=== PATIENT | female | born 1945 | race Caucasian/White ===

== ENCOUNTER → 2017-04-16 | Outpatient (CLI) | payer MEDICARE, OTHER ==
[~2017-04-16] MED LIST: GADOBENATE 529MG/1ML 15ML VIAL IVP ONE
--- NOTE | 2017-04-16 15:43 | RADIOLOGY IMAGING REPORT ---
FACILITY: PATIENT NAME: Ella Mauricio : 1945 MR: [id number] V: [id number] EXAM DATE: ORDERING PHYSICIAN: HANK ANSARI TECHNOLOGIST: Location: [facility] Patient: Ella Mauricio : 1945 Visit/Account:[id number] Date of Sevice: 04/16/2017 MRI of the lumbar spine with and without contrast Indication: Low back pain Comparison: MRI lumbar spine from 02/23/2013 Technique: Sagittal T2-weighted, sagittal STIR, sagittal T1-weighted, axial T2-weighted fat-saturated , and axial T1-weighted images of the lumbar spine were obtained. Sagittal T1-weighted fat saturated post contrast and axial T1-weighted post contrast images were obtained through the lumbar spine. A to taurus of 14 ml IV MultiHance contrast was administered. Findings: The conus terminates normally at level of L1-L2 There is a nonspecific small nonenhancing hypointensity measuring 5 mm within the mid L2 vertebral margi dy which appears unchanged and may represent an atypical hemangioma. There is no increased signal on the sagittal STIR images. There is no abnormal signal within the visualized spinal cord, The vertebral body heights are well maintained. Minimal disc desiccation seen throughout the lumbar spine levels. The sagittal images of T12-L1 show no significant central stenosis or foraminal narrowing. T12-L1: No significant central stenosis or neural foraminal narrowing. L1-L2: There is a tiny hypointense nonenhancing 5 mm structure along the anterior margin of the exiti ng right L1 nerve seen best in image 3 of the sagittal series which could represent a tiny disc fragm ent/extrusion. This was not seen on prior study. L2-L3: . She described ovoid hypointense structure within the left neural foramen is not visualized on this study. There is a mild diffuse disc bulge at this level with minimal central stenosis and min imal foraminal narrowing bilaterally as well. L3-L4: Minimal diffuse disc bulge and facet arthropathy with mild foraminal narrowing bilaterally. L4-L5: Minimal diffuse disc bulge and moderate facet arthropathy results in overall minimal central s tenosis. There is mild right-sided and minimal left-sided neural foraminal narrowing. L5-S1: Minimal diffuse disc bulge and facet arthropathy with no significant central stenosis or for aminal narrowing. There is no focal area of abnormal contrast enhancement. Impression: 1. Multilevel degenerative change lumbar spine as described above with no severe central or foraminal narrowing. 2. No discrete lesion identified at the L2-L3 foramen as described on prior MRI. However, there is s uggestion of a tiny 5 mm nonenhancing structure possibly representing disc fragment along the anterio r margin the exiting right L1 nerve at L1-L2. Report Dictated By: Andrew Williamson MD at 04/16/2017 3:24 PM Report E-Signed By: Andrew Williamson MD at 04/16/2017 3:39 PM WSN:[email or web address]
== END ==
LOC: MRI 02:29
PROVIDERS: ATTEND Nurse Practitioner Family
DX: M51.36 Other intervertebral disc degeneration, lumbar region (principal)
CPT/HCPCS: 36415; 72158; 82565; A9577

== ENCOUNTER → 2017-04-30 | Outpatient (CLI) | payer MEDICARE, OTHER ==
--- NOTE | 2017-04-30 12:19 | RADIOLOGY IMAGING REPORT ---
[place]AC[place] [facility] [place]IENT NAME: Ella Mauricio : 1945 MR: [id number] V: [id number] EXAM DATE: ORDERING PHYSICIAN: HANK ANSARI TECHNOLOGIST: Location: [facility] [place] Patient: Ella Mauricio : 1945 Visit/Account:[id number] Date of Sevice: 04/30/2017 Exam type: HIPS BILATERAL History: Bilateral hip pain radiating posteriorly Comparison: None. Findings: There is very mild joint space narrowing of both hip joints. There is no evidence of acute fracture or dislocation. No lytic or blastic lesions identified within the hips IMPRESSION: 1. 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
== END ==
LOC: RAD 10:21
PROVIDERS: ATTEND Nurse Practitioner Family
DX: M16.0 Bilateral primary osteoarthritis of hip (principal)
CPT/HCPCS: 73522

== ENCOUNTER → 2017-05-23 | Outpatient (CLI) | payer MEDICARE, OTHER ==
--- NOTE | 2017-05-23 15:50 | RADIOLOGY IMAGING REPORT ---
FACILITY: [facility] PATIENT NAME: Ella Mauricio : 1945 MR: [id number] V: [id number] EXAM DATE: ORDERING PHYSICIAN: HANK ANSARI TECHNOLOGIST: Location: [facility] Patient: Ella Mauricio : 1945 Visit/Account:[id number] Date of Sevice: 05/23/2017 ABDOMEN/PELVIS W/O CONTRAST HISTORY: Right lower quadrant pain, low back pain TECHNIQUE: CT abdomen and pelvis with intravenous contrast. Contiguous axial images of the abdomen and pelvis was performed from the lung bases to the symphysis pubis. One of the following dose optimization techniques was utilized in the performance of this exam: Autom ated exposure control; adjustment of the mA and/or kV according to the patient's size; or use of an i terative reconstruction technique. Specific details can be referenced in the facility's radiology C T exam operational policy. CONTRAST: None. COMPARISON: Lumbar spine MRI 04/16/2017 FINDINGS: Visualized lung bases: The heart is notable for a lipomatous hypertrophy of interatrial septum. Ale lar calcification of the mitral valve is noted. Scattered small pulmonary micronodules at the lung bases are noted measuring up to [address] of the chest for a baseline evaluation. Approximately 5 micronodules are noted at the lung bases. Hepatobiliary: 1.1 cm probable cyst is noted segment 5 of the liver. Spleen: Negative. Adrenals: Bilateral adrenal thickening likely represents hyperplasia. Kidneys/: 1.1 cm probable cyst is noted lateral midpole left kidney partially imaged on prior MRI. No visible radiopaque renal or ureteral stones. Uterus appears to be absent. Pancreas: Negative. GI: No evidence for bowel obstruction or focal inflammation. Appendix is not visualized but there ar e no inflammatory changes around cecum. Vessels/spaces/nodes: Small right inguinal hernia is noted with fat in the defect. Bones/soft tissues: Negative. IMPRESSION: 1. No acute pathology in the abdomen or pelvis. A source for pain is not forthcoming on the current study. 2. Approximately 5 scattered pulmonary micronodules at the lung bases. Recommend dedicated CT of the chest without contrast for further evaluation. 3. Other chronic findings are described above. Report Dictated By: Feliz Whaley MD at 05/23/2017 3:34 PM Report E-Signed By: Feliz Whaley MD at 05/23/2017 3:46 PM WSN:[email or web address]
== END ==
LOC: CT 07:05
PROVIDERS: ATTEND Nurse Practitioner Family
DX: I51.7 Cardiomegaly (principal); I70.0 Atherosclerosis of aorta; R91.8 Other nonspecific abnormal finding of lung field; N28.1 Cyst of kidney, acquired; K40.90 Unilateral inguinal hernia, without obstruction or gangrene, not specified as recurrent
CPT/HCPCS: 74176

== ENCOUNTER → 2017-05-29 | Outpatient (CLI) | payer MEDICARE, OTHER ==
[~2017-05-29] MED LIST changes: -GADOBENATE 529MG/1ML 15ML VIAL IVP ONE; +IOPAMIDOL 76% 75 ML INFUS BTL 75 ML ONE
--- NOTE | 2017-05-29 08:42 | RADIOLOGY IMAGING REPORT ---
FACILITY: [facility] PATIENT NAME: Ella Mauricio : 1945 MR: [id number] V: [id number] EXAM DATE: ORDERING PHYSICIAN: BRENT ROSARIO TECHNOLOGIST: Location: [facility] [place] Patient: Ella Mauricio : 1945 Visit/Account:[id number] Date of Sevice: 05/29/2017 CHEST W W/O CONTRAST History: Pulmonary nodules in lung bases, heavy smoker, no chest pain ADDITIONAL CLINICAL HISTORY: None TECHNIQUE: Contiguous axial images were performed through the chest to the level of the adrenal gla nds with and without IV contrast. Coronal and sagittal reformatting was also performed. Dose Loweri ng Technique One of the following dose optimization techniques was utilized in the performance of this exam: Autom ated exposure control; adjustment of the mA and/or kV according to the patient's size; or use of an i terative reconstruction technique. Specific details can be referenced in the facility's radiology C T exam operational policy. Contrast: 75 mL Isovue-[id number] COMPARISON STUDIES: CT and pelvis May 23, 2017. Lungs / Pleura: Scattered micronodules are again seen throughout the lungs similar to the recent CT of abdomen and pelvis measuring up to four mm in diameter. Some of these nodules appear to be calci fied. Also noted are three intrafissural nodules in the major fissure on the left two of which are c alcified the largest measuring 4 mm in diameter. There is no evidence of focal infiltrates or pleura l effusions. Mediastinum/nodes: There are multiple pretracheal lymph nodes largest measuring approximately 8 x 6 mm. There are several precarinal lymph nodes largest measuring 1.3 x 1.2 cm Heart and vessels: Extensive calcifications are seen at the aortic arch. There is lipomatous hypert rophy of the intra-atrial septum Musculoskeletal / Body wall: There are mild spondylotic changes of the thoracic spine and visualize d lower cervical spine. There are very gentle dextroconvex curvature to the thoracic spine Upper abdomen: 1.1 cm hypodensity in segment five of the liver likely represents a cyst and appears unchanged thickening the adrenal gland again noted IMPRESSION: There are scattered micronodules throughout the lungs similar to the recent CT of abdomen measuring u p to 4 mm in diameter. Some of these nodules appear to be calcified. Also noted are three intrafiss ural nodules in the major fissure on the left tube which are calcified as well with the largest measu ring 4 mm in diameter. The noncalcified nodules could represent noncalcified granulomas however foll ow-up according to the Fleischner Society recommendations recommended For multiple nodules measuring less than 6 mm, in a low risk patient (minimal or absent smoking history, no history of malignancy), no routine followup is recommended. In a high risk patient (smoking or malignancy history), optional 12 month followup can be obtained. Mildly prominent mediastinal lymph nodes which could be reactive although follow-up recommended Extensive vascular calcifications at the aortic arch Additional chronic findings as described Report Dictated By: Angela Lazar MD at 05/29/2017 8:16 AM Report E-Signed By: Angela Lazar MD at 05/29/2017 8:37 AM WSN:[email or web address]
== END ==
LOC: CT 01:55
PROVIDERS: ATTEND Nurse Practitioner Family
DX: R91.8 Other nonspecific abnormal finding of lung field (principal); R59.0 Localized enlarged lymph nodes; I70.0 Atherosclerosis of aorta
CPT/HCPCS: 36415; 71270; 82565; Q9967

== ENCOUNTER 2017-06-09 06:32 | Emergency (ER) | payer MEDICARE, OTHER ==
[2017-06-09] MEDS ORDERED: KETOROLAC 60 MG/2 ML VIAL IM ONE (07:15)
--- NOTE | 2017-06-09 07:23 | ER Report ---
History and Physical Time Seen By MD: 07:15 Hx. of Stated Complaint: 3-4 years of back pain. HPI/ROS HISTORY OF PRESENT ILLNESS: 71 yo F here with right lower back pain with radiation to the right thigh. Denies weakness of the LE b/l, fevers, chills, CP, SOB. She endorses cramping lower abdominal pain which is intermittent. Last solid BM was approximately 3 days prior. Patient has tolerating oral intake however she notes that her appetite is diminished. Abdominal pain has been present for several years approximately coinciding with the time of onset of her back pain. Denies hematuria, hematochezia or melena. Patient reports having similar back pain which is been constant for the last several years. She was recently evaluated with an MRI of the lumbar spine, please see records. She does admit to taking prescribed analgesia for her pain without significant relief of symptoms. Denies incontinence, saddle anesthesia, lower extremity muscular weakness or change in lower extremity sensation. Denies prior course of steroid therapy. CHIEF COMPLAINT: Back pain REVIEW OF SYSTEMS: Constitutional: No fever, no chills. Eyes: No discharge. ENT: No sore throat. Cardiovascular: No chest pain, no palpitations. Respiratory: No cough, no shortness of breath. Gastrointestinal: + mild TTP of the lower abdomen b/l without rebound or guarding , no vomiting. Genitourinary: No hematuria, + questionable dysuria Musculoskeletal: + lower right back pain. Skin: No rashes. Neurological: No headache, no weakness of the LE, no focal deficits. Allergies: Coded Allergies: latex (Verified Allergy, Unknown, 06/09/17) Home Meds Active Scripts Prednisone (PREDNISONE) 20 Mg Tablet, 20 MG PO BID for 5 Days, #8 TAB 0 Refills Prov:MALA DURAN DO 06/09/17 Reported Medications Hydrochlorothiazide (HYDROCHLOROTHIAZIDE) 12.5 Mg Tablet, QDAY 06/09/17 Tramadol Hcl (TRAMADOL HCL) 50 Mg Tablet, 50-100 MG PO Q4-6H, TAB 06/09/17 Cyclobenzaprine Hcl (CYCLOBENZAPRINE HCL) 10 Mg Tablet, QDAY 06/09/17 Levothyroxine Sodium (LEVOTHYROXINE SODIUM) 100 Mcg Tablet, QDAY 06/09/17 Discontinued Reported Medications Tramadol Hcl (TRAMADOL HCL) 50 Mg Tablet, PRN Y for PAIN 06/09/17 Past Medical/Surgical History Patient has a history significant for hypertension, pneumonia, COPD, arthritis, thyroidectomy, chronic back pain, ulcers. Reviewed Nurses Notes: Yes Old Medical Records Reviewed: Yes Constitutional Vital Sign - Last 24 Hours 06/09/17 06/09/17 06/09/17 06/09/17 06:36 06:36 06:47 07:02 Temp 98.5 Pulse 108 102 102 Resp 18 B/P (MAP) 181/90 (120) 181/90 Pulse Ox 96 95 96 06/09/17 06/09/17 06/09/17 06/09/17 07:32 07:37 07:55 08:00 B/P (MAP) 182/119 (140) 184/108 (133) Pulse Ox 95 84 06/09/17 06/09/17 06/09/17 06/09/17 08:07 08:42 08:47 09:00 Pulse 89 85 85 B/P (MAP) 184/106 (132) Pulse Ox 83 94 91 06/09/17 06/09/17 06/09/17 06/09/17 09:02 09:30 10:00 10:07 B/P (MAP) 181/108 (132) 113/91 (98) Pulse Ox 67 94 06/09/17 10:12 Pulse 81 B/P (MAP) 119/81 (94) Pulse Ox 94 Physical Exam General appearance: Mild distress, alert and oriented Back: Thoracic spine has no spinal or paraspinal tenderness to palpation. + Lumbar spine has mild TTP mid lumbar spinal tenderness, + moderate paraspinal tenderness in the right lower flank Gastrointestinal: Abdomen is soft, + mild tenderness of the lower abdomen on palpation b/l, no rebound or guarding, no masses.. Skin: No lesions and no rashes. Vascular: Normal capillary refill and pulses to feet. Neurological: Motor function: leg strength equal bilaterally Sensory function: normal for all leg dermatomes. Reflexes normal bilaterally on legs. DIFFERENTIAL DIAGNOSIS: After history and physical exam differential diagnosis was considered for back pain including but not limited to muscular pain, herniated disc, neuropathy, radiculopathy, sciatica, spine fracture, intra- abdominal causes and urinary tract infection. Medical Decision Making Data Points Result Diagram: 06/09/17 0730 06/09/17 0730 Laboratory Hematology Test 06/09/17 07:25 06/09/17 07:30 Urine Color Yellow Urine Clarity Clear Urine pH 5.0 pH (4.8-9.5) Urine Specific Pegram 1.023 Urine Protein Negative mg/dL (NEGATIVE) Urine Glucose (UA) Negative mg/dL (NEGATIVE) Urine Ketones Negative mg/dL (NEGATIVE) Urine Blood Negative (NEGATIVE) Urine Nitrite Negative (NEGATIVE) Urine Bilirubin Negative (NEGATIVE) Urine Urobilinogen Negative mg/dL (0.2-1.9) Urine Leukocyte Esterase Negative (NEGATIVE) Urine RBC None /HPF (0-2/HPF) Urine WBC 1 /HPF (0-5/HPF) Urine Squamous Epithelial Cells Many /LPF (</=FEW) Urine Transitional Epithelial Cells Few /LPF (NONE-FEW) Urine Bacteria Negative /HPF (NONE-FEW) Urine Hyaline Casts Few /LPF (NONE-FEW) Urine Mucus Few /HPF (NONE-FEW) Red Blood Count 5.09 M/uL (4.17-5.56) Mean Corpuscular Volume 89.2 fL (80.0-96.0) Mean Corpuscular Hemoglobin 31.2 pg (26.0-33.0) Mean Corpuscular Hemoglobin Concent 34.9 g/dL (32.0-36.0) Red Cell Distribution Width 13.8 % (11.5-14.5) Mean Platelet Volume 8.2 fL (7.2-11.1) Neutrophils (%) (Auto) 74.3 % (39.4-72.5) Lymphocytes (%) (Auto) 17.6 % (17.6-49.6) Monocytes (%) (Auto) 6.2 % (4.1-12.4) Eosinophils (%) (Auto) 0.7 % (0.4-6.7) Basophils (%) (Auto) 1.2 % (0.3-1.4) Nucleated RBC Relative Count (auto) 0.1 /100WBC Neutrophils # (Auto) 5.2 K/uL (2.0-7.4) Lymphocytes # (Auto) 1.2 K/uL (1.3-3.6) Monocytes # (Auto) 0.4 K/uL (0.3-1.0) Eosinophils # (Auto) 0.0 K/uL (0.0-0.5) Basophils # (Auto) 0.1 K/uL (0.0-0.1) Nucleated RBC Absolute Count (auto) 0.01 K/uL Sodium Level 134 mmol/L (137-145) Potassium Level 3.0 mmol/L (3.5-5.0) Chloride Level 96 mmol/L (98-107) Carbon Dioxide Level 24 mmol/L (22-31) Blood Urea Nitrogen 12 mg/dl (7-18) Creatinine 0.80 mg/dl (0.52-1.04) Glomerular Filtration Rate Calc > 60.0 Random Glucose 125 mg/dl (75-110) Calcium Level 9.8 mg/dl (8.4-10.2) Chemistry Test 06/09/17 07:25 06/09/17 07:30 Urine Color Yellow Urine Clarity Clear Urine pH 5.0 pH (4.8-9.5) Urine Specific Pegram 1.023 Urine Protein Negative mg/dL (NEGATIVE) Urine Glucose (UA) Negative mg/dL (NEGATIVE) Urine Ketones Negative mg/dL (NEGATIVE) Urine Blood Negative (NEGATIVE) Urine Nitrite Negative (NEGATIVE) Urine Bilirubin Negative (NEGATIVE) Urine Urobilinogen Negative mg/dL (0.2-1.9) Urine Leukocyte Esterase Negative (NEGATIVE) Urine RBC None /HPF (0-2/HPF) Urine WBC 1 /HPF (0-5/HPF) Urine Squamous Epithelial Cells Many /LPF (</=FEW) Urine Transitional Epithelial Cells Few /LPF (NONE-FEW) Urine Bacteria Negative /HPF (NONE-FEW) Urine Hyaline Casts Few /LPF (NONE-FEW) Urine Mucus Few /HPF (NONE-FEW) White Blood Count 6.9 k/uL (4.5-11.0) Red Blood Count 5.09 M/uL (4.17-5.56) Hemoglobin 15.9 g/dL (12.0-16.0) Hematocrit 45.4 % (34.0-47.0) Mean Corpuscular Volume 89.2 fL (80.0-96.0) Mean Corpuscular Hemoglobin 31.2 pg (26.0-33.0) Mean Corpuscular Hemoglobin Concent 34.9 g/dL (32.0-36.0) Red Cell Distribution Width 13.8 % (11.5-14.5) Platelet Count 221 K/uL (150-450) Mean Platelet Volume 8.2 fL (7.2-11.1) Neutrophils (%) (Auto) 74.3 % (39.4-72.5) Lymphocytes (%) (Auto) 17.6 % (17.6-49.6) Monocytes (%) (Auto) 6.2 % (4.1-12.4) Eosinophils (%) (Auto) 0.7 % (0.4-6.7) Basophils (%) (Auto) 1.2 % (0.3-1.4) Nucleated RBC Relative Count (auto) 0.1 /100WBC Neutrophils # (Auto) 5.2 K/uL (2.0-7.4) Lymphocytes # (Auto) 1.2 K/uL (1.3-3.6) Monocytes # (Auto) 0.4 K/uL (0.3-1.0) Eosinophils # (Auto) 0.0 K/uL (0.0-0.5) Basophils # (Auto) 0.1 K/uL (0.0-0.1) Nucleated RBC Absolute Count (auto) 0.01 K/uL Glomerular Filtration Rate Calc > 60.0 Calcium Level 9.8 mg/dl (8.4-10.2) Urinalysis Test 06/09/17 07:25 Urine Color Yellow Urine Clarity Clear Urine pH 5.0 pH (4.8-9.5) Urine Specific Pegram 1.023 Urine Protein Negative mg/dL (NEGATIVE) Urine Glucose (UA) Negative mg/dL (NEGATIVE) Urine Ketones Negative mg/dL (NEGATIVE) Urine Blood Negative (NEGATIVE) Urine Nitrite Negative (NEGATIVE) Urine Bilirubin Negative (NEGATIVE) Urine Urobilinogen Negative mg/dL (0.2-1.9) Urine Leukocyte Esterase Negative (NEGATIVE) Urine RBC None /HPF (0-2/HPF) Urine WBC 1 /HPF (0-5/HPF) Urine Squamous Epithelial Cells Many /LPF (</=FEW) Urine Transitional Epithelial Cells Few /LPF (NONE-FEW) Urine Bacteria Negative /HPF (NONE-FEW) Urine Hyaline Casts Few /LPF (NONE-FEW) Urine Mucus Few /HPF (NONE-FEW) EKG/Imaging Imaging ABDOMEN AP AND ERECT/DECUB, HIP RIGHT HISTORY: abdominal pain, constipation COMPARISON: CT examination the abdomen and pelvis from May 23, 2017 FINDINGS: Two views the abdomen are submitted. Lung bases are clear. No free air. Nonobstructive bowel pattern without evidence of pneumatosis or free air. No focal wall thickening. No pathologic calcification. No acute bony finding. Two views right hip are submitted. Osseous alignment anatomic in the pelvis. No acute fracture or destructive osseous process. IMPRESSION: 1. Nonobstructive bowel pattern without evidence of pathology 2. No acute osseous finding involving the right hip ABDOMEN AP AND ERECT/DECUB, HIP RIGHT HISTORY: abdominal pain, constipation COMPARISON: CT examination the abdomen and pelvis from May 23, 2017 FINDINGS: Two views the abdomen are submitted. Lung bases are clear. No free air. Nonobstructive bowel pattern without evidence of pneumatosis or free air. No focal wall thickening. No pathologic calcification. No acute bony finding. Two views right hip are submitted. Osseous alignment anatomic in the pelvis. No acute fracture or destructive osseous process. IMPRESSION: 1. Nonobstructive bowel pattern without evidence of pathology 2. No acute osseous finding involving the right hip CT ABDOMEN and pelvis WITHOUT CONTRAST CLINICAL INFORMATION: Right flank pain, lower abdomen pain TECHNIQUE: Axial CT images were obtained through the abdomen and pelvis without administration of IV contrast. Reformatted coronal and sagittal images were also obtained. Dose Lowering Technique One of the following dose optimization techniques was utilized in the performance of this exam: Automated exposure control; adjustment of the mA and/ or kV according to the patient's size; or use of an iterative reconstruction technique. Specific details can be referenced in the facility's radiology CT exam operational policy. COMPARISON: May 23, 2017 FINDINGS: Lower lung jalloh: Previously described small micronodules measuring up to 4 mm in the lower lung jalloh appear unchanged Evaluation of the solid organs of the abdomen is limited without IV contrast. Liver: 1.1 cm hypodensity segment five of the liver remain stable Biliary: Gallbladder is mildly distended although no evidence of biliary ductal dilatation Pancreas: Normal appearance. Spleen: Accessory splenule Adrenal glands: Bilateral adrenal thickening similar to the prior study Kidneys / retroperitoneum: 1.1 cm lower pole left renal cyst again seen. There is additional subcentimeter hypodensity too small to characterize also lower pole. Is a punctate calcification in the parenchyma of the lower pole the left kidney as well The lower pole the right kidney there is a 9 mm subtle area of increased CT attenuation could represent fine averaging although hyperdense mass not totally excluded. There is no evidence of nephrolithiasis hydronephrosis or hydroureter Genitalia: Hysterectomy Bowel / peritoneum / mesenteries: There is diverticulosis of the left-sided colon although no CT evidence of acute diverticulitis. There is a moderate amount of fecal material seen throughout colon which can be seen with constipation There is a small hiatal hernia Lymph node assessment: No pathologic adenopathy identified. Vessels: Moderate vascular calcifications atherosclerotic calcification seen throughout a nonaneurysmal abdominal aorta and branches. Musculoskeletal / Body wall: No aggressive appearing bone lesions are seen. Small right inguinal hernia containing fat IMPRESSION: 1. Diverticulosis left-sided colon although no CT evidence of acute diverticulitis Moderate amount of fecal material throughout colon which can seen with constipation Small hiatal hernia 1.1 cm lower pole left renal cyst Suggestion of a vague area of increased density lower pole of the right kidney. This could represent volume averaging although a hypodense mass not totally ruled out. If of concern postcontrast CT versus MRI versus ultrasound may be helpful Micronodules in the lower lung jalloh stable when compared the prior study Gallbladder is mildly distended although no evidence of biliary ductal dilatation. This could be related to fasting state Additional chronic findings as described ED Course/Re-evaluation ED Course Patient is a 71-year-old female here with complaints of bilateral lower abdominal pain as well as lower back pain with radiation to the flank and her extremity [id number]. Patient has had several workups for these complaints including MRI of the lumbar spine, please see report in record. Patient was afebrile on exam, hemodynamically stable complaining of lower abdominal cramping pain as well as tenderness in the lower back midline, right paraspinal musculature with reproducible pain in the right flank. Urinalysis was unremarkable with no hematuria. X-ray of the hip showed no acute fracture. X- ray of the abdomen show no acute signs of blockage. Patient received Toradol without significant alleviation pain. Lab work was unremarkable. CT imaging of the abdomen was ordered due to persistent and worsening complaints of lower abdominal pain. Patient was found to have significant stool burden and was advised to consider taking MiraLAX, Senokot and Colace for constipation. Patient was also given a prescription for prednisone 40 mg for 5 days burst therapy for suspected neuropathic pain or sciatica which radiated down proximal to the knee and was reproducible at the sciatic notch. I described the findings to the patient and she voiced understanding. Patient was advised to follow-up with her family doctor in the next week and return promptly with worsening pain , decreased PO intake, nausea, vomiting, fevers, chills, chest pain, shortness breath. Re-evaluation Patient pain had mild improvement at time of reevaluation after receiving Toradol Decision to Disposition Date: Jun 09, 2017 Decision to Disposition Time: 10:19 Depart Departure Latest Vital Signs Vital Signs Date Time Temp Pulse Resp B/P (MAP) Pulse Ox O2 Delivery O2 Flow Rate FiO2 06/09/17 10:12 81 119/81 (94) 94 06/09/17 06:36 98.5 18 Impression: Primary Impression: Back pain Additional Impressions: Constipation Abdominal pain Condition: Improved Disposition: HOME OR SELF-CARE New Scripts Prednisone (PREDNISONE) 20 Mg Tablet 20 MG PO BID for 5 Days, #8 TAB 0 Refills Prov: MALA DURAN DO 06/09/17 Patient Instructions: Constipation (ED), Sciatica (ED) Additional Instructions: Please take 40 mg of Prednisone (2 tabs) daily for the next 5 days. You were noted to have significant ammounts of stool in your bowel: you may consider taking miralax, sennakot, colace for constipation Please follow up with your family doctor within the next week for follow up Please return promptly if he develops worsening back pain, leg weakness, bowel or bladder incontinence, fevers or chills. Problem Qualifiers MALA DURAN DO Jun 09, 2017 07:23
[2017-06-09 07:48] LABS: PLATELET COUNT, AUTOMATED 221 K/uL (150-450)
--- NOTE | 2017-06-09 08:15 | RADIOLOGY IMAGING REPORT ---
FACILITY: [facility] [place] PATIENT NAME: Ella Mauricio : 1945 MR: [id number] V: [id number] EXAM DATE: ORDERING PHYSICIAN: MALA DURAN TECHNOLOGIST: Location: [facility] Patient: Ella Mauricio : 1945 Visit/Account:[id number] Date of Sevice: 06/09/2017 ABDOMEN AP AND ERECT/DECUB, HIP RIGHT HISTORY: abdominal pain, constipation COMPARISON: CT examination the abdomen and pelvis from May 23, 2017 FINDINGS: Two views the abdomen are submitted. Lung bases are clear. No free air. Nonobstructive bowel pattern without evidence of pneumatosis or free air. No focal wall thickening. No pathologic calcification. No acute bony finding. Two views right hip are submitted. Osseous alignment anatomic in the pelvis. No acute fracture or d estructive osseous process. IMPRESSION: 1. Nonobstructive bowel pattern without evidence of pathology 2. No acute osseous finding involving the right hip Report Dictated By: Elliot Junior MD at 06/09/2017 8:08 AM Report E-Signed By: Elliot Junior MD at 06/09/2017 8:10 AM WSN:[email or web address]
--- NOTE | 2017-06-09 08:15 | RADIOLOGY IMAGING REPORT ---
FACILITY: [facility] PATIENT NAME: Ella Mauricio : 1945 MR: [id number] V: [id number] EXAM DATE: ORDERING PHYSICIAN: MALA DURAN TECHNOLOGIST: Location: [facility] Patient: Ella Mauricio : 1945 Visit/Account:[id number] Date of Sevice: 06/09/2017 ABDOMEN AP AND ERECT/DECUB, HIP RIGHT HISTORY: abdominal pain, constipation COMPARISON: CT examination the abdomen and pelvis from May 23, 2017 FINDINGS: Two views the abdomen are submitted. Lung bases are clear. No free air. Nonobstructive bowel pattern without evidence of pneumatosis or free air. No focal wall thickening. No pathologic calcification. No acute bony finding. Two views right hip are submitted. Osseous alignment anatomic in the pelvis. No acute fracture or d estructive osseous process. IMPRESSION: 1. Nonobstructive bowel pattern without evidence of pathology 2. No acute osseous finding involving the right hip Report Dictated By: Elliot Junior MD at 06/09/2017 8:08 AM Report E-Signed By: Elliot Junior MD at 06/09/2017 8:10 AM WSN:[email or web address]
[2017-06-09] MEDS ORDERED: TRAM-420 (08:37)
[2017-06-09] MEDS ORDERED: LEVO-3 (08:37)
[2017-06-09] MEDS ORDERED: CYCL10TA29 (08:37)
[2017-06-09] MEDS ORDERED: TRAM-420 PO (08:40)
[2017-06-09] MEDS ORDERED: HYDR12.561 (08:40)
--- NOTE | 2017-06-09 09:28 | RADIOLOGY IMAGING REPORT ---
FACILITY: [facility] [place] PATIENT NAME: Ella Mauricio : 1945 MR: [id number] V: [id number] EXAM DATE: ORDERING PHYSICIAN: MALA DURAN TECHNOLOGIST: [facility] Patient: Ella Mauricio : 1945 Visit/Account:[id number] Date of Sevice: 06/09/2017 CT ABDOMEN and pelvis WITHOUT CONTRAST CLINICAL INFORMATION: Right flank pain, lower abdomen pain TECHNIQUE: Axial CT images were obtained through the abdomen and pelvis without administration of I V contrast. Reformatted coronal and sagittal images were also obtained. Dose Lowering Technique One of the following dose optimization techniques was utilized in the performance of this exam: Autom ated exposure control; adjustment of the mA and/or kV according to the patient's size; or use of an i terative reconstruction technique. Specific details can be referenced in the facility's radiology C T exam operational policy. COMPARISON: May 23, 2017 FINDINGS: Lower lung jalloh: Previously described small micronodules measuring up to 4 mm in the lower lung fie lds appear unchanged Evaluation of the solid organs of the abdomen is limited without IV contrast. Liver: 1.1 cm hypodensity segment five of the liver remain stable Biliary: Gallbladder is mildly distended although no evidence of biliary ductal dilatation Pancreas: Normal appearance. Spleen: Accessory splenule Adrenal glands: Bilateral adrenal thickening similar to the prior study Kidneys / retroperitoneum: 1.1 cm lower pole left renal cyst again seen. There is additional subcent imeter hypodensity too small to characterize also lower pole. Is a punctate calcification in the par enchyma of the lower pole the left kidney as well The lower pole the right kidney there is a 9 mm subtle area of increased CT attenuation could represe nt fine averaging although hyperdense mass not totally excluded. There is no evidence of nephrolithiasis hydronephrosis or hydroureter Genitalia: Hysterectomy Bowel / peritoneum / mesenteries: There is diverticulosis of the left-sided colon although no CT evid ence of acute diverticulitis. There is a moderate amount of fecal material seen throughout colon whi ch can be seen with constipation There is a small hiatal hernia Lymph node assessment: No pathologic adenopathy identified. Vessels: Moderate vascular calcifications atherosclerotic calcification seen throughout a nonaneurysm al abdominal aorta and branches. Musculoskeletal / Body wall: No aggressive appearing bone lesions are seen. Small right inguinal her tiago containing fat IMPRESSION: 1. Diverticulosis left-sided colon although no CT evidence of acute diverticulitis Moderate amount of fecal material throughout colon which can seen with constipation Small hiatal hernia 1.1 cm lower pole left renal cyst Suggestion of a vague area of increased density lower pole of the right kidney. This could represent volume averaging although a hypodense mass not totally ruled out. If of concern postcontrast CT vipin lyndsey MRI versus ultrasound may be helpful Micronodules in the lower lung jalloh stable when compared the prior study Gallbladder is mildly distended although no evidence of biliary ductal dilatation. This could be rel ated to fasting state Additional chronic findings as described Report Dictated By: Angela Lazar MD at 06/09/2017 9:02 AM Report E-Signed By: Angela Lazar MD at 06/09/2017 9:22 AM WSN:[email or web address]
[2017-06-09 10:12] VITALS: BP 119/81
[2017-06-09] MEDS ORDERED: PRED20TA6 PO (10:16)
== END 2017-06-09 10:22 | disposition home or self-care (01) ==
LOC: ER 06:50
DX: M54.5 Low back pain (principal); K59.00 Constipation, unspecified; R10.9 Unspecified abdominal pain
CPT/HCPCS: 36415; 73502; 74019; 74176; 81001; 85025; 96372; 99283; J1885; 74150; 82310; 82374; 82435; 82565; 82947; 84132; 84295; 84520

== ENCOUNTER → 2017-06-30 | Outpatient (CLI) | payer MEDICARE, OTHER ==
[~2017-06-30] MED LIST changes: +CYCL10TA29; +HYDR12.561; -IOPAMIDOL 76% 75 ML INFUS BTL 75 ML ONE; +LEVO-3; +PRED20TA6 PO; +TRAM-420; +TRAM-420 PO
== END ==
LOC: LAB 11:17
PROVIDERS: ATTEND Nurse Practitioner Family
DX: E87.6 Hypokalemia (principal)
CPT/HCPCS: 36415; 82040; 82247; 82310; 82374; 82435; 82565; 82947; 84075; 84132; 84155; 84295; 84450; 84460; 84520

== ENCOUNTER → 2017-07-30 | Outpatient (CLI) | payer MEDICARE, OTHER ==
[~2017-07-30] MED LIST changes: +ACET500T68 PO; +DICL100G39 TOP; -HYDR12.561; +HYDR12.561 PO; -LEVO-3; +LEVO-3 PO; +POTA-53 PO
== END ==
LOC: LAB 13:12
PROVIDERS: ATTEND Family Medicine
DX: E87.6 Hypokalemia (principal)
CPT/HCPCS: 36415; 82310; 82374; 82435; 82565; 82947; 84132; 84295; 84520

== ENCOUNTER → 2017-08-28 | Outpatient (CLI) | payer MEDICARE, OTHER | LOC: LAB 14:18 | PROVIDERS: ATTEND Family Medicine | DX: E03.9 Hypothyroidism, unspecified (principal) | CPT/HCPCS: 36415; 82310; 82374; 82435; 82565; 82947; 84132; 84295; 84443; 84520 ==

== ENCOUNTER → 2017-12-31 | Outpatient (CLI) | payer MEDICARE, OTHER ==
[~2017-12-31] MED LIST changes: +DUL20 PO
== END ==
LOC: LAB 14:35
PROVIDERS: ATTEND Family Medicine
DX: E03.9 Hypothyroidism, unspecified (principal); I10 Essential (primary) hypertension
CPT/HCPCS: 36415; 82310; 82374; 82435; 82565; 82947; 84132; 84295; 84443; 84520

== ENCOUNTER → 2018-01-05 | Outpatient (CLI) | payer MEDICARE, OTHER | LOC: LAB 09:45 | PROVIDERS: ATTEND Family Medicine | DX: I10 Essential (primary) hypertension (principal) | CPT/HCPCS: 36415; 82310; 82374; 82435; 82565; 82947; 84132; 84295; 84520 ==

== ENCOUNTER → 2018-01-19 | Outpatient (CLI) | payer MEDICARE, OTHER | LOC: LAB 10:11 | PROVIDERS: ATTEND Family Medicine | DX: I10 Essential (primary) hypertension (principal) | CPT/HCPCS: 36415; 82310; 82374; 82435; 82565; 82947; 84132; 84295; 84520 ==

== ENCOUNTER → 2018-08-12 | Outpatient (CLI) | payer MEDICARE, OTHER ==
[~2018-08-12] MED LIST changes: +APIX5TAB PO; +LISI-362 PO; +LISI20TA29 PO; +LISI5TAB25 PO
[2018-08-12 15:17] LABS: PLATELET COUNT, AUTOMATED 251 K/uL (150-450)
--- NOTE | 2018-08-12 15:50 | EKG ---
FACILITY: [facility] [place] PATIENT NAME: RICCI CALL : [id number] MR: [id number] V: [id number] EXAM DATE: ORDERING PHYSICIAN: IRMA CAMACHO TECHNOLOGIST: RAMAN Alvarez Reason : TACHYCARDIA Blood Pressure : / mmHG Vent. Rate : 096 BPM Atrial Rate : 090 BPM P-R Int : 000 ms QRS Dur : 058 ms QT Int : 340 ms P-R-T Axes : 000 100 068 degrees QTc Int : 429 ms Atrial fibrillation Septal infarct , age undetermined Abnormal ECG No previous ECGs available Referred By: IRMA CAMACHO Confirmed By:
== END ==
LOC: LAB 14:28
PROVIDERS: ATTEND Family Medicine
DX: E03.9 Hypothyroidism, unspecified (principal); I10 Essential (primary) hypertension; R00.0 Tachycardia, unspecified
CPT/HCPCS: 36415; 82040; 82247; 82310; 82374; 82435; 82565; 82947; 84075; 84132; 84155; 84295; 84443; 84450; 84460; 84520; 85025

== ENCOUNTER → 2018-08-21 | Outpatient (CLI) | payer MEDICARE, OTHER | LOC: RAD 00:46 | PROVIDERS: ATTEND Family Medicine | DX: I51.7 Cardiomegaly (principal); I34.0 Nonrheumatic mitral (valve) insufficiency; I36.1 Nonrheumatic tricuspid (valve) insufficiency; I35.1 Nonrheumatic aortic (valve) insufficiency | CPT/HCPCS: 93306 ==

== ENCOUNTER → 2018-09-30 | Outpatient (CLI) | payer MEDICARE, OTHER ==
[2018-09-30 16:54] LABS: PLATELET COUNT, AUTOMATED 219 K/uL (150-450)
== END ==
LOC: LAB 15:58
PROVIDERS: ATTEND Family Medicine
DX: I48.91 Unspecified atrial fibrillation (principal)
CPT/HCPCS: 36415; 82040; 82247; 82310; 82374; 82435; 82565; 82947; 84075; 84132; 84155; 84295; 84450; 84460; 84520; 85025

== ENCOUNTER → 2018-10-02 | Outpatient (CLI) | payer MEDICARE, OTHER ==
[~2018-10-02] MED LIST changes: +IOPAMIDOL 76% 100 ML INFUS BTL 100 ML ONE
--- NOTE | 2018-10-02 13:47 | RADIOLOGY IMAGING REPORT ---
FACILITY: [facility] PATIENT NAME: Ella Mauricio : 1945 MR: [id number] V: [id number] EXAM DATE: ORDERING PHYSICIAN: IRMA CAMACHO TECHNOLOGIST: Location: [facility] [place] Patient: Ella Mauricio : 1945 Visit/Account:[id number] Date of Sevice: 10/02/2018 CT CHEST W & W/O CON History: 73-year-old female. Evaluate for lung nodules. Technique: Thin axial CT images were obtained through the chest prior to and following the injection of intravenous contrast using Isovue-370 100 cc.Coronal and sagittal reformations were then created. One of the following dose optimization techniques was utilized in the performance of this exam: Autom ated exposure control; adjustment of the mA and/or kV according to the patient's size; or use of an i terative reconstruction technique. Specific details can be referenced in the facility's radiology C T exam operational policy. Comparison: CT scan chest May 29, 2017. Findings: Lower neck: No lymphadenopathy. Thyroid gland/mediastinum/hilum/lymph nodes: The thyroid gland is unremarkable. Again noted are smal l lymph nodes in the mediastinum. They are most notable in the pretracheal region. There appearance is unchanged when compared to the prior exam. Heart and pericardium: The heart size is normal. There is coronary calcification. There is calcific ation of the mitral valve annulus. Lungs/pleura: Areas of lucency in the upper lung jalloh could represent changes of central lobar eryt tiffanie. Correlation with past medical history is recommended. In the left lung major fissure there are again noted to be at least 2 foci of calcification. They ar e unchanged. Laterally in the left lower lobe there are 2 calcified parenchymal nodules. They are s table. They measure approximately 4 mm in size. In the right lower lobe posteriorly there is a subtle focus of groundglass density that measures 6 mm in size. No new nodular densities are noted. Chest Wall: No findings of a chest wall mass. No lymphadenopathy or surgical clips in the axillary regions. Bones/soft tissues: There is no vertebral body compression fracture. Upper abdomen: Again noted is a stable cyst in segment 5 of the liver. IMPRESSION: 1. Stable bilateral pulmonary micronodules is noted on the previous exam. Negative for nodules are calcified and suggestive of prior granulomatous disease. 2. Stable precarinal and pretracheal lymphadenopathy of uncertain significance. 3. No findings of a new infiltrate or mass. The current recommended follow-up routine for MULTIPLE SOLID NODULES: If nodule size is < 6 mm: * Low risk patient ? No routine follow-up. * High risk patient ? Optional CT at 12 months. Report Dictated By: Gumaro Anderson MD at 10/02/2018 1:26 PM Report E-Signed By: Gumaro Anderson MD at 10/02/2018 1:38 PM WSN:[id number]
== END ==
LOC: CT 04:25
PROVIDERS: ATTEND Family Medicine
DX: R91.8 Other nonspecific abnormal finding of lung field (principal)
CPT/HCPCS: 71270; Q9967